=== PATIENT | female | born 1960 | race Caucasian/White ===

== ENCOUNTER 2019-12-14 20:08 | Emergency (ER) | payer OTHER, BC ==
[~2019-12-14] VITALS: Ht 157.5 cm; Wt 101.6 kg
[~2019-12-14 20:08] MED LIST: ALLOPURINOL 10100 M2 PO; APAP500 PO; INDOMETHACIN 5050 MG PO; LISINOPRIL20 MG PO; NASONEX17 GM; NIFEDIPINE ER30 M1 PO; TOPAMAX 25 MG T25 M1 PO; TRAMADOL 50 MG50 MG PO; ZANAFLEX2 M1 PO
[2019-12-14] MEDS ORDERED: ATORVASTATIN CA20 MG PO (20:32)
[2019-12-14] MEDS ORDERED: CELEXA 20 MG TA20 MG PO (20:33)
[2019-12-14] MEDS ORDERED: ALPRAZOLAM XR3 MG PO (20:33)
[2019-12-14] MEDS ORDERED: NORFLEX100 MG PO (21:27)
[2019-12-14] MEDS ORDERED: PREDNISONE 10 M10 M1 PO (21:27)
[2019-12-14] MEDS ORDERED: TRAMADOL 50 MG50 MG PO (21:27)
[2019-12-14 21:41] VITALS: BP 180/69
== END 2019-12-14 21:41 | disposition home or self-care (01) ==
LOC: M.ERS 20:08
DX: S39.012A Strain of muscle, fascia and tendon of lower back, initial encounter (principal); M54.31 Sciatica, right side; E78.00 Pure hypercholesterolemia, unspecified; M10.9 Gout, unspecified; Z88.5 Allergy status to narcotic agent; F17.210 Nicotine dependence, cigarettes, uncomplicated; X58.XXXA Exposure to other specified factors, initial encounter; Y93.89 Activity, other specified; Y92.89 Other specified places as the place of occurrence of the external cause; Y99.0 Civilian activity done for income or pay